=== PATIENT | male | born 1965 | race Caucasian/White ===

== ENCOUNTER → 2016-09-11 | Outpatient (CLI) | payer OTHER | END | disposition home or self-care (01) | LOC: PCVCIMAG 09:15 | PROVIDERS: ATTEND Internal Medicine Cardiovascular Disease | DX: I10 Essential (primary) hypertension (principal); I42.9 Cardiomyopathy, unspecified; I08.2 Rheumatic disorders of both aortic and tricuspid valves | CPT/HCPCS: 93306 ==

== ENCOUNTER → 2017-07-30 | Outpatient (CLI) | payer OTHER ==
--- NOTE | 2017-07-30 19:15 | PCVCIMAG ---
APPROVED REPORT Study performed: 07/30/2017 14:25:18 EXAM: Comprehensive 2D, Doppler, and color-flow Echocardiogram Patient Location: Echo lab Status: routine BSA: 2.51 HR: 70 bpm Rhythm: Pacemaker Other Information Study Quality: Fair Technically limited study due to body habitus. Indications Congestive Heart Failure Pacemaker systolic heart failure, nonischemic cardiomyopathy 2D Dimensions LVEF(%): 19.57 (>50%) IVSd: 7.81 (7-11mm) LVDd: 68.61 mm PWd: 10.15 (7-11mm) LVDs: 62.33 (25-40mm) Left Atrium: 47.60 (27-40mm) Aortic Root: 34.24 mm LV Single Plane 4CH: 20.58 % LV Single Plane 2CH: 18.91 %Joyce's LVEF: 19.75 % Volumes Left Atrial Volume (Systole) Single Plane 4CH: 124.38 mLSingle Plane 2CH: 84.28 mL LA ESV Index: 41.00 mL/m2 Aortic Valve AoV Peak Fabrice.: 1.05 m/s AO Peak Gr.: 4.60 mmHgLVOT Max P.04 mmHg LVOT Max V: 0.51 m/s Pulmonary Valve PV Peak Fabrice.: 0.68 m/sPV Peak Gr.: 1.85 mmHg Tricuspid Valve TR Peak Fabrice.: 2.90 m/s TR Peak Gr.: 33.75 mmHg Left Ventricle Left ventricle is at least moderately dilated. There is normal LV segmental wall motion. There is normal left ventricular wall thickness. Left ventricular ejection fraction is severely decreased globally. LVEF is 20%. This study is not technically sufficient to allow evaluation of the LV diastolic function due to ectopy. Right Ventricle The right ventricle is normal size. The right ventricular systolic function is normal. Pacemaker lead is present in the right ventricle. Atria Left atrium is moderately dilated. Pacemaker lead is present in the right atrium. Aortic Valve The aortic valve is normal in structure. Mild aortic regurgitation. There is no aortic valvular stenosis. Mitral Valve The mitral valve is normal in structure. Mild mitral regurgitation. No evidence of mitral valve stenosis. Tricuspid Valve The tricuspid valve is normal in structure. Mild tricuspid regurgitation with PAP of 41 mmHg. Pulmonic Valve The pulmonary valve is normal in structure. There is no pulmonic valvular regurgitation. Great Vessels The aortic root is normal in size. IVC is normal in size and collapses with >50% inspiration Pericardium There is no pericardial effusion. <Conclusion> Left ventricle is at least moderately dilated. Left ventricular ejection fraction is severely decreased globally. LVEF is 20%. This study is not technically sufficient to allow evaluation of the LV diastolic function due to ectopy. The right ventricle is normal size. Left atrium is moderately dilated. Pacemaker lead is present in the right atrium. Mild aortic regurgitation. Mild mitral regurgitation. Mild tricuspid regurgitation with PAP of 41 mmHg. There is no pericardial effusion.
== END | disposition home or self-care (01) ==
LOC: PCVCIMAG 14:22
PROVIDERS: ATTEND Internal Medicine Cardiovascular Disease
DX: I08.3 Combined rheumatic disorders of mitral, aortic and tricuspid valves (principal); I50.20 Unspecified systolic (congestive) heart failure; E78.5 Hyperlipidemia, unspecified; E66.9 Obesity, unspecified; I42.9 Cardiomyopathy, unspecified; Z95.0 Presence of cardiac pacemaker
CPT/HCPCS: 80061; 93005; 93306

== ENCOUNTER → 2018-12-18 | Outpatient (CLI) | payer OTHER ==
--- NOTE | 2018-12-18 15:28 | PCVCIMAG ---
APPROVED REPORT Study performed: 12/18/2018 13:49:33 EXAM: Comprehensive 2D, Doppler, and color-flow Echocardiogram Patient Location: Echo lab Room #: 2Status: routine BSA: 2.53 HR: 65 bpmBP: 118/74 mmHg Rhythm: NSR w/ frequent ectopy Other Information Study Quality: Fair Risk Factors: Cardiac Risk Factors: HTN Indications CAD Cardiomyopathy HX: nonischemic cardiomyopathy, [place] defibrilator, 2D Dimensions IVSd: 6.92 (7-11mm)LVOT Diam: 22.26 (18-24mm) LVDd: 65.94 mm PWd: 11.23 (7-11mm)Ascending Ao: 28.19 (22-36mm) LVDs: 58.26 (25-40mm) Left Atrium: 41.75 (27-40mm) Aortic Root: 29.20 mm LV Single Plane 4CH: 26.71 % LV Single Plane 2CH: 22.77 % Volumes Left Atrial Volume (Systole) Single Plane 4CH: 88.10 mLSingle Plane 2CH: 44.57 mL Biplane LA Volume: 67.00 mLLA ESV Index: 27.00 mL/m2 Aortic Valve AoV Peak Fabrice.: 1.15 m/s AO Peak Gr.: 5.66 mmHgLVOT Max P.37 mmHg LVOT Max V: 0.75 m/s SUMMER Vmax: 2.55 cm2 AI Vmax: 3.21 m/s AI Glades: 1.57 m/s2 AI PHT: 591.20 ms Mitral Valve E/A Ratio: 1.7 MV Decel. Time: 190.47 ms MV E Max Fabrice.: 0.69 m/s MV A Fabrice.: 0.40 m/s IVRT: 124.57 ms TDI E/Lateral E': 9.86E/Medial E': 17.25 Medial E' Fabrice.: 0.04 m/s Lateral E' Fabrice.: 0.07 m/s Pulmonary Valve PV Peak Fabrice.: 0.92 m/sPV Peak Gr.: 3.40 mmHg Pulmonary Vein P Vein S: 0.39 m/sP Vein A: 0.28 m/s P Vein D: 0.47 m/sP Vein A Dur.: 121.1 msec P Vein S/D Ratio: 0.83 Tricuspid Valve TR Peak Fabrice.: 2.91 m/s TR Peak Gr.: 33.76 mmHg TV Vmax: 0.52 m/sPA Pressure: 41.00 mmHg Left Ventricle Left ventricle is severely dilated. There is global severe hypokinesis of the left ventricle. There is normal left ventricular wall thickness. Left ventricular systolic function is severely decreased. LVEF is 25%. This study is not technically sufficient to allow evaluation of the LV diastolic function due to frequent ectopy. Right Ventricle The right ventricle is normal size. The right ventricular systolic function is normal. Atria The left atrium size is normal. Pacemaker lead is present in the right atrium. Aortic Valve Aortic valve is not well visualized. Mild aortic valve sclerosis. Mild aortic regurgitation. There is no aortic valvular stenosis. Mitral Valve The mitral valve is normal in structure. Mild mitral regurgitation. No evidence of mitral valve stenosis. Tricuspid Valve The tricuspid valve is normal in structure. Mild tricuspid regurgitation with a PA pressure of 41 mmHg Moderate pulmonary hypertension.. Pulmonic Valve The pulmonary valve is normal in structure. Trace pulmonic regurgitation. Great Vessels The aortic root is normal in size. Aortic arch is normal in caliber. The ascending aorta is normal in size. The inferior vena cava is not well visualized but appears normal in size. Pericardium There is no pericardial effusion. There is no pleural effusion. <Conclusion> Left ventricle is severely dilated. Left ventricular systolic function is severely decreased. LVEF is 25%. This study is not technically sufficient to allow evaluation of the LV diastolic function due to frequent ectopy. The right ventricle is normal size. The left atrium size is normal. Aortic valve is not well visualized. Mild aortic valve sclerosis. Mild aortic regurgitation. Mild aortic regurgitation. Mild mitral regurgitation. Mild tricuspid regurgitation with a PA pressure of 41 mmHg Moderate pulmonary hypertension.. The aortic root is normal in size. There is no pericardial effusion.
== END | disposition home or self-care (01) ==
LOC: PCVCIMAG 14:18
PROVIDERS: ATTEND Internal Medicine Cardiovascular Disease
DX: I08.3 Combined rheumatic disorders of mitral, aortic and tricuspid valves (principal); I25.10 Atherosclerotic heart disease of native coronary artery without angina pectoris; I47.2 Ventricular tachycardia; E78.00 Pure hypercholesterolemia, unspecified; G47.30 Sleep apnea, unspecified; I11.0 Hypertensive heart disease with heart failure; I50.9 Heart failure, unspecified; E66.9 Obesity, unspecified; Z95.810 Presence of automatic (implantable) cardiac defibrillator; Z91.041 Radiographic dye allergy status; Z79.82 Long term (current) use of aspirin; Z79.899 Other long term (current) drug therapy
CPT/HCPCS: 93306